=== PATIENT | male | born 1955 | race Caucasian/White ===

== ENCOUNTER → 2017-03-21 | Outpatient (CLI) | payer BC ==
--- NOTE | ~2017-03-21 | ENPV ---
Vascular Upper Extremities Veins Procedure Demographics Patient Name SITA SALINAS Date of Study 03/21/2017 Patient Number [id number] Gender Male Date of 1955 Age 61 Visit Number [id number] Height Accession Number [id number] Weight Room Number BSA BMI Referring Faye Rosas MD Physician MD Physician Faye Santacruz Physician Ordering Physician Faye Santacruz Mortgage Loan Reviewer MD Export Sales Assistant Evelyn Flor Conclusions Summary The internal jugular, subclavian, axillary, brachial, radial and ulnar veins as well as the basilic and cephalic veins have been examined. There is sub-acute deep vein thrombosis in the right subclavian, axillary, and basilic veins. Procedure Type of Study: Veins:Upper Extremities Veins, Upper Extremity Right. Indications for Study:Arm swelling. Appropriate Use Criteria:9 Patient Status:Routine. Study Location:Vascular Lab. Technical Quality:Adequate visualization. Velocities are measured in cm/s ; Diameters are measured in cm Right UE Vein Measurements 2D and Doppler Measurements + + + + +--------+ + !Location !Visualized !Compressibility !Thrombosis !Signal !Reflux ! + + + + +--------+ + !IJV !Yes !Yes !None !Phasic !No ! + + + + +--------+ + !SCV !Yes !No !Sub-acute !Absent !No ! + + + + +--------+ + !Axillary !Yes !No !Sub-acute !Absent !No ! + + + + +--------+ + !Brachial !Yes !Yes !None !Phasic !No ! + + + + +--------+ + !Radial !Yes !Yes !None !Phasic !No ! + + + + +--------+ + !Ulnar !Yes !Yes !None !Phasic !No ! + + + + +--------+ + !Basilic !Yes !No !Sub-acute !Absent !No ! + + + + +--------+ + !Cephalic !Yes !Yes !None !Phasic !No ! + + + + +--------+ + Left UE Vein Measurements 2D and Doppler Measurements + + + + +--------+ + !Location !Visualized !Compressibility !Thrombosis !Signal !Reflux ! + + + + +--------+ + !IJV !Yes !Yes !None !Phasic ! ! + + + + +--------+ + Signature dtt: JOSH TAYLOR dtd: 03/21/17 1147 Physician Self Edit
== END | disposition disaster alternative care site (69) ==
LOC: GCAR 11:00
DX: M79.621 Pain in right upper arm (principal); I82.621 Acute embolism and thrombosis of deep veins of right upper extremity; C25.1 Malignant neoplasm of body of pancreas; R60.0 Localized edema